=== PATIENT | female | born 1955 | race Caucasian/White ===

== ENCOUNTER 2018-12-16 06:33 | Day surgery (SDC) | payer OTHER ==
[~2018-12-16 06:33] MED LIST: LEVO-T75 MCG PO; MULTI VITAMIN1 EACH PO; TOPROL XL50 M1 PO; VITAMIN D1000 UNI1 PO
== END 2018-12-16 17:20 | disposition home or self-care (01) ==
LOC: CIR.AMB 06:33
DX: N84.0 Polyp of corpus uteri (principal)